=== PATIENT | male | born 1940 | race Caucasian/White ===

== ENCOUNTER → 2016-07-30 | Outpatient (CLI) | payer OTHER ==
[~2016-07-30] MED LIST: ACET-1257 PO; ASPI81CH2 PO; ATEN50TA PO; ATOR-22 PO; CALC500C70 PO; ERGO500037 PO; HYDR-5688 PO; HYG/25 PO; PARO1TAB27 PO; TEST5GEL TOP
--- NOTE | 2016-07-30 12:00 | DIAGNOSTIC IMAGING REPORT ---
LEFT HIP 2 VIEWS HISTORY: Left HIP PAIN COMPARISON: None. FINDINGS: There is no fracture or dislocation. Soft tissues are unremarkable. Cartilage spaces are maintained for age. IMPRESSION: Unremarkable left hip. Electronically signed by: Gurvinder Bell M.D. 07/30/2016 11:58 AM Dictated Date/Time: 07/30/2016 11:57 AM
== END | disposition home or self-care (01) ==
LOC: C.RADBC 11:35
PROVIDERS: ATTEND Anesthesiology
DX: M25.552 Pain in left hip (principal)